=== PATIENT | male | born 1985 | race Caucasian/White ===

== ENCOUNTER 2022-09-20 13:31 | Emergency (ER) | payer MEDICAID ==
[~2022-09-20] VITALS: Ht 152.4 cm; Wt 90.7 kg
[2022-09-20 16:09] VITALS: BP 124/70
--- NOTE | 2022-09-20 16:11 | NUR ---
AMBULATED TO BED IN NO DISTRESS
--- NOTE | 2022-09-20 16:11 | NUR ---
The patient's care was reviewed and supervised by YASMANY ROSALES RN.
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
[2022-09-20] MEDS ORDERED: IBUP-2213 PO (17:38)
[2022-09-20 18:25] VITALS: BP 133/61
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
== END 2022-09-20 18:25 | disposition home or self-care (01) ==
LOC: MED 13:31
DX: S02.2XXA Fracture of nasal bones, initial encounter for closed fracture (principal); M54.2 Cervicalgia; Y04.8XXA Assault by other bodily force, initial encounter; Y93.89 Activity, other specified; Y92.89 Other specified places as the place of occurrence of the external cause; Y99.8 Other external cause status
CPT/HCPCS: 70450; 70486; 72125; 99284